=== PATIENT | female | born 2000 | race Caucasian/White ===

== ENCOUNTER 2023-09-17 09:16 | Outpatient (CLI) | payer OTHER, SELFPAY ==
--- NOTE | ~2023-09-17 | US_ITS ---
US breast RT limited DATE: 09/17/2023 09:31 INDICATION: Right breast lump at 1:00 5 cm from nipple TECHNIQUE: Real-time imaging targeted area clinical complaint at 1:00 5 cm from nipple COMPARISON: None FINDINGS: No suspicious mass or shadowing, cyst or other significant sonographic abnormality is detec chloé. IMPRESSION: Negative Reviewed, dictated and finalized at Location A. Reviewed, dictated and finalized at location A. IMPRESSION: Negative
== END 2023-09-17 09:17 ==
LOC: MICIMG 09:19
PROVIDERS: PCP Nurse Practitioner; Visit Provider Nurse Practitioner
DX: N63.10 Unspecified lump in the right breast, unspecified quadrant (principal)
CPT/HCPCS: 76642

== ENCOUNTER 2025-05-19 10:01 | Outpatient (CLI) | payer OTHER, SELFPAY ==
--- OUTSIDE RECORDS SUMMARY | 2021-01-24 10:19 | XMS_ITS | Continuity of Care Document ---
Author Organization [facility] Address [address] [place] [address] Phone Care Team Providers Care Testing Analyst Name Role Phone Travis Bacon DO Unavailable Unavailable Procedures Procedure Date Shave Lesion Trunk/Arms/Legs: 0.6-1.0cm OFFICE/OUTPATIENT VISIT, EST OFFICE/OUTPATIENT VISIT, EST Advance Directives Directive Yes / No Effective Date File Name No Information Encounters Encounter Description Practice Location Reason(s) For Visit Diagnoses Date Provider Providers Copied on Encounter [facility], [place], [facility], [address] [place] [address], [id number], [place] tel:[phone] [facility] No Information 1 Arleen Robles. [address] [place], [place], [id number], [place]. tel:[phone] [facility], [address] [place] [address], [id number], [place] tel:[phone] [facility] Lesion (chief complaint) Neoplasm of uncertain behavior of skin 1 Arleen Robles. [address] [place], [place], [id number], [place]. tel:[phone] OFFICE/OUTPAT IENT VISIT, EST [facility], [place], [facility], [address] [place] [address], [id number], [place] tel:[phone] [facility] New Patient (chief complaint) Benign nevus of skinNeoplasm of uncertain behavior 1 Marya Damon. [address] [facility], [place], [id number], [place]. tel:[phone] OFFICE/OUTPAT IENT VISIT, GODFREY Rubia [facility], [address] [facility], [place], [place], [id number], [place] tel:[phone] [facility] No Information 0 Sunshine Perea. [address] [place] [address], [id number], [place]. tel:[phone] Referring Provider: Brit Alicia, [address] [place] [address], [id number] . tel:[phone] Family History Family Member Type Diagnosis Age At Onset No Information Payers Payer name Insurance type Covered constitution party ID Authoriza tibrennan(s) [employer] [facility] S [id number] Social History Type Description Quantity Date Captured Comments Sex Female Smoking Status No Information Chief Complaint And Reason For Visit No Information Reason For Referral Reason For Referral No Information Plan Of Treatment Date Type Action Status Goal Td vaccine. Due on due Goal Annual Physical Exam. Due on due Goal Tdap. Due on due Goal Td vaccine. Due on due Goal Annual Physical Exam. Due on due Goal Influenza Vaccine. Due on due Goal Tdap. Due on due History Of Present Illness Encounter Date Complaint History Of Prese nt Illness Lesion Brad Gomez is a 20 y/o established female who presents for a follow up visit. Pt has no personal history of skin CA. She is concerned about a persistent dark lesion at her right chin onset several months ago. New Patient Brad Gomez is a 20 y/o female new patient who presents for the evaluation of a mole on her right arm (not bothersome) and a mole on her right chin that, at times, will become inflamed and has hair growth as well. She does have a FHx of MM with her paternal grandmother. Her father and sister have had suspicious and bothersome moles removed in the past. Functional Status Date Functional Assessmen t No Information Instructions Date Instruction Additional Infor lauren - All clinically pat ign appearing today except where noted. Discussed ABCDEs of melanoma, importance of sunscreen protection with SPF 30 or higher, wide brimmed hat, and long sleeves. Patient to call with new, changing, or concerning mole. Related to Benign nevus of skin (Changing nevus vs i rritated Dermal Nevus) - Give the patient's symptoms, she desires removal. We discussed scarring with Excision of this lesion. She understands and wishes to proceed. - Patient will be schedule an appointment with Dr. Bacon for an Excision procedure. Related to Neoplasm of uncertain behavior Assessments Type Assessment Date No Information Patient Care Teams Name Effective Dates (start - stop) Status Members No Information
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
[2025-05-19 10:29] LABS: Hematocrit 42.3 % (37.0-47.0); Hemoglobin 13.9 g/dL (12.0-15.0); Immature Granulocyte Percent A 0.3 % (0-0.5); Lymphocytes Absolute Auto 1.43 K/mm3 (0.9-3.2); Mean Corpuscular HGB Conc 32.9 g/dl (32-36); Mean Corpuscular Hemoglobin 28.9 pg (26-34); Mean Corpuscular Volume 87.9 fl (80-100); Nucleated Red Blood Cells Absolute Auto 0.000 K/mm3 (0.0-0.012); Nucleated Red Blood Cells Perc 0.0 % (0.0-0.2); Platelet Count Result 265 k/mm3 (150-375); Red Blood Count 4.81 M/mm3 (4.2-5.4); White Blood Count 7.2 K/mm3 (4.5-10.0)
--- OUTSIDE RECORDS SUMMARY | 2025-05-19 10:31 | XMS_ITS | Clinical Summary ---
Author Organization [facility] Address [address] [facility] [place] [address] Care Team Providers Care Equities Trader Name Role Phone Marlena Chavarria DO Primary Care Provider [phone] Source Comments [facility],non-owned Affiliates and Associated Physician Practices is amultiple site organization consisting of ambulatory clinics and hospital sitesin [place], [place], [place] and [place]. This disclosure is being madepursuant to the Care Everywhere program and may not contain all information available regarding this patient. Last updated 18.[facility] Allergies Active Allergy Reactions Criticality Noted Date Comments Azithromycin Urticaria Medium 04/08/2016 Cefdinir Urticaria Medium 04/08/2016 Penicillins Itching 04/08/2016 Medications * Be aware that medications may not be up to date on this document. Alwaysverify current medications with the patient. Cholecalciferol (VITAMIN D PO) Activ e Social History Tobacco Use Types Packs/Day Years Used Date Smoking Tobacco: Never Smokeless Tobacco: Never Comments Unknown Sex and Gender Information Value Date Recorded Sex Assigned at Not on file Legal Sex Female 10:20 AM CDT Gender Identity Female 03/27/2017 11:22 AM CDT Sexual Orientation Not on file Last Filed Vital Signs Vital Sign Reading Time Taken Comments Blood Pressure 102/66 02/14/2017 6:09 PM CDT Pulse 78 02/14/2017 6:09 PM CDT Temperature 36.7 C (98 F) 02/14/2017 6:09 PM CDT Respiratory Rate 16 02/14/2017 6:09 PM CDT Oxygen Saturation - - Inhaled Oxygen Concentration - - Weight 60.3 kg (133 lb) 02/14/2017 6:09 PM CDT Height 161.3 cm (5' 3.5) 02/14/2017 6:09 PM CDT Body Mass Index 23.19 02/14/2017 6:09 PM CDT Plan of Treatment Health Maintenance Due Date Last Done Comments HIV SCREENING 2016 HPV VACCINE (1 - 3-dose series) 2016 CHLAMYDIA/GONORRHEA SCREENING 2017 MENINGOCOCCAL (Group B) VACC INE SHARED DECISION-MAKING (1 of 2 - Standard) 2017 HEPATITIS C SCREENING 06/29/2019 DTAP/TDAP/TD VACCINES (1 - Tdap) 2020 HEPATITIS B VACCINE (1 of 3 - 19+ 3-dose series) 2020 DEPRESSION SCREENING 07/09/2024 COVID-19 VACCINE (1 - 2023-2 5 season) 2025 INFLUENZA VACCINE (#1) 2025 ZOSTER VACCINE (1 of 2) 2051 HIB VACCINE Aged Out No longer eligi ble based on patient's age to complete this topic MENINGOCOCCAL GROUPS A/C/Y/W VACCINE Aged Out No longer eligible b ased on patient's age to complete this topic PNEUMOCOCCAL VACCINE Aged Out No long er eligible based on patient's age to complete this topic Care Teams Equities Trader Relationship Specialty Start Date End Date Marlena Chavarria DO [address] [place] [address] PCP - General Pediatrics 02/14/17
[2025-05-19 10:36] LABS: Add Urine Microscopic? NO; Appearance Urine Clear (Clear); Glucose Urine UA Negative (Negative); Leukocyte Esterase Ur Negative LEU/UL (Negative); Nitrate Urine Negative (Negative); Specific Grav Ur 1.008 (1.001-1.035)
[2025-05-19 10:40] LABS: Alanine Aminotransferase 14 U/L (6-35); Albumin Level 4.7 g/dL (3.5-5.1); Alkaline Phosphatase 46 U/L (38-126); Anion Gap 9 mmol/L (4-12); Aspartate Amino Transferase 22 U/L (14-36); Bilirubin,Total 0.9 mg/dL (0.2-1.3); Blood Urea Nitrogen 11 mg/dL (7-17); Calcium 9.2 mg/dL (8.4-10.2); Carbon Dioxide 25 mmol/L (22-30); Chloride 103 mmol/L (98-107); Cholesterol 130 mg/dL (0-200); Estimated Glomerular Filt Rate > 60; Glucose 91 mg/dL (65-110); HDL Direct 49 mg/dL; Potassium 3.6 mmol/L (3.4-5.0); Sodium 137 mmol/L (137-145); Total Protein 7.7 g/dL (6.3-8.2); Triglycerides 31 mg/dL (<150)
[2025-05-19 11:03] LABS: Hemoglobin A1C 4.6 % (<5.7)
[2025-05-19 11:06] LABS: Free T4 Free Thyroxine 1.08 ng/dL (0.78-2.19)
[2025-05-19 11:15] LABS: Thyroid Stimulating Hormone 0.439 uIU/mL (0.465-4.680)
[2025-05-19 11:56] LABS: Iron 117 ug/dL (37-170)
[2025-05-19 12:06] LABS: Percent Iron Saturation 34 % (20-50)
[2025-05-19 12:32] LABS: Ferritin 27.40 ng/mL (6.24-137)
[2025-05-20 13:09] LABS: C-Reactive Protein, Cardiac 0.37 mg/L (0.00-3.00)
[2025-05-20 14:09] LABS: ANA by IFA Rfx Titer/Pattern Negative (.)
== END 2025-05-19 10:02 | disposition home or self-care (01) ==
LOC: ANHLAB 10:02
PROVIDERS: PCP Nurse Practitioner Family; Visit Provider Nurse Practitioner Family
DX: D64.9 Anemia, unspecified (principal); R94.6 Abnormal results of thyroid function studies; M25.50 Pain in unspecified joint; Z13.1 Encounter for screening for diabetes mellitus; Z00.00 Encounter for general adult medical examination without abnormal findings; Z13.6 Encounter for screening for cardiovascular disorders
CPT/HCPCS: 36415; 80053; 80061; 81003; 82728; 83036; 83540; 83550; 84439; 84443; 85025; 86038; 86141

== ENCOUNTER 2025-06-03 12:42 | Outpatient (CLI) | payer OTHER, SELFPAY ==
--- NOTE | ~2025-06-03 | US_ITS ---
US thyroid INDICATION: Abnormal thyroid laboratory values TECHNIQUE: Real-time sonographic images of the thyroid gland were obtained. COMPARISON: No prior studies for comparison. FINDINGS: The right thyroid lobe measures 5.5 x 1.5 x 1.4 cm. The left thyroid lobe measures 4.9 x 1.2 x 1.3 cm. There is normal echotexture and echogenicity throughout the thyroid gland. No discrete nodules identified. Normal vascular flow is present. IMPRESSION: 1. Normal thyroid without discrete nodule or abnormal vascularity. Reviewed, dictated and finalized at location I. PATIAL DEVELOPER
== END 2025-06-03 12:43 | disposition home or self-care (01) ==
LOC: GOSHIMG 12:43
PROVIDERS: PCP Nurse Practitioner Family; Visit Provider Nurse Practitioner Family
DX: R79.89 Other specified abnormal findings of blood chemistry (principal)
CPT/HCPCS: 76536